=== PATIENT | female | born 1995 | race Two or more races ===

== ENCOUNTER 2022-12-16 20:00 | Inpatient (IN) | payer MEDICAID, OTHER ==
[~2022-12-16] VITALS: Ht 165.1 cm; Wt 137.0 kg
[2022-12-16 21:30] LABS: Basophils # (auto) 0 10 ^3/uL (0-0.2); Basophils % (auto) 0.5 % (0.0-2.0); Eosinophils # (auto) 0 10 ^3/uL (0-0.8); Eosinophils % (auto) 0.2 % (0.0-7.0); Hematocrit 34.5 % (36.0-46.0); Hemoglobin 11.4 g/dL (12.2-16.2); Lymphocytes # (auto) 1.8 10 ^3/uL (0.4-5.4); Lymphocytes % (auto) 19.8 % (10.0-50.0); Mean Corpuscular Hemoglobin 27.4 pg (28.0-32.0); Monocytes # (auto) 0.7 10 ^3/uL (0-1.3); Monocytes % (auto) 7.5 % (0.0-12.0); Neutrophils # (auto) 6.4 10 ^3/uL (1.6-8.6); Nucleated Red Blood Cells % 0.1 %; Red Blood Cells 4.16 10^6/uL (4.0-5.20); White Blood Cell 8.9 10^3/uL (4.4-10.8)
[2022-12-16 21:50] LABS: Blood Urea Nitrogen 13 mg/dL (7-18); Calcium 8.6 mg/dL (8.5-10.1); Chloride 109 mmol/L (98-107); Potassium 3.7 mmol/L (3.5-5.1); Sodium 138 mmol/L (136-145)
[2022-12-16 21:56] LABS: Alanine Aminotransferase 66 U/L (13-56); Albumin 3.5 g/dL (3.4-5.0); Alkaline Phosphatase 173 U/L (45-117); Anion Gap 4 (5-15); Aspartate Aminotransferase 73 U/L (15-37); BUN/Creatinine Ratio 18.6 (10.0-20.0); Bilirubin, Total 0.7 mg/dL (0.2-1.0); Carbon Dioxide 25 mmol/L (21-32); GFR African American 128 mL/min; GFR Non-African American 106 mL/min; Glucose 104 mg/dL (74-106); Total Protein 7.8 g/dL (6.4-8.2)
[2022-12-16 22:33] LABS: Lipase > 30000 U/L (73-393)
[2022-12-16 22:48] LABS: Urine Bacteria NONE SEEN /hpf (None Seen); Urine Blood 2+ /uL (Negative); Urine Mucus FEW (None Seen); Urine Specific Gravity 1.025 (1.001-1.035); Urine WBC 8 /hpf (0 - 5)
[2022-12-16] MEDS ORDERED: ONDANSETRON ODT 4 MG TAB PO ONE (23:15)
[2022-12-16] MEDS ORDERED: HYDROmorphone HCL 2 MG/ML VL/or syr IM ONE (23:15)
[2022-12-16] MEDS ORDERED: SODIUM CHLORIDE 0.9% 1,000 ML IV ONE (23:15)
[2022-12-17] VITALS (7 sets, daily range): BP systolic 108–126; BP diastolic 54–72
[2022-12-17] MEDS ORDERED: ACETAMINOPHEN 325 MG TAB PO PRN (00:30)
[2022-12-17] MEDS ORDERED: DOCUSATE SOD 100 MG CAP PO PRN (00:30)
[2022-12-17] MEDS ORDERED: HYDROcodone-ACET 5/325MG TAB PO PRN (00:30)
[2022-12-17] MEDS ORDERED: ONDANSETRON HCL 4 MG/2 ML VIAL IV PRN (00:30)
[2022-12-17] MEDS: MORPHINE SULFATE INJ 2 MG/ml SYRG IV PRN ×2 (01:31→12:33)
[2022-12-17] MEDS ORDERED: IBUPROFEN 600 MG TAB PO PRN (02:30)
[2022-12-17] MEDS ORDERED: NITROGLYCERIN 0.4 MG SL TAB SL PRN (02:30)
[2022-12-17] MEDS ORDERED: MORPHINE SULFATE INJ 2 MG/ml SYRG IV PRN (02:30)
[2022-12-17] MEDS: D5W/SOD CHLO 0.9% 1,000 ML IV SCH ×2 (03:53→18:45)
[2022-12-17 07:32] LABS: Basophils # (auto) 0 10 ^3/uL (0-0.2); Eosinophils # (auto) 0 10 ^3/uL (0-0.8); Lymphocytes # (auto) 1.8 10 ^3/uL (0.4-5.4); Monocytes # (auto) 0.5 10 ^3/uL (0-1.3); Neutrophils % (auto) 63.6 % (37.0-80.0); Nucleated Red Blood Cells % 0.2 %; White Blood Cell 6.5 10^3/uL (4.4-10.8)
[2022-12-17 07:35] LABS: Basophils % (auto) 0.3 % (0.0-2.0); Eosinophils % (auto) 0.3 % (0.0-7.0); Hematocrit 33.5 % (36.0-46.0); Hemoglobin 10.8 g/dL (12.2-16.2); Mean Corpuscular Hemoglobin 26.8 pg (28.0-32.0); Mean Corpuscular Hgb Conc. 32.1 g/dL (32.0-36.0); Mean Corpuscular Volume 83.4 fL (80.0-100.0); Monocytes % (auto) 7.8 % (0.0-12.0); Neutrophils # (auto) 4.1 10 ^3/uL (1.6-8.6); Red Blood Cells 4.02 10^6/uL (4.0-5.20); Red Cell Distribution Width 16.6 % (11.8-14.3)
[2022-12-17 07:54] LABS: Albumin 3.3 g/dL (3.4-5.0); Calcium 8.2 mg/dL (8.5-10.1); Potassium 3.5 mmol/L (3.5-5.1)
[2022-12-17 07:59] LABS: BUN/Creatinine Ratio 22.9 (10.0-20.0); Bilirubin, Total 0.6 mg/dL (0.2-1.0); Total Protein 7.2 g/dL (6.4-8.2)
[2022-12-17] MEDS: FAMOTIDINE (10MG/ML) 2ML VL IV SCH ×2 (11:32→21:36)
[2022-12-18] MEDS: D5W/SOD CHLO 0.9% 1,000 ML IV SCH ×2 (03:10→16:30)
[2022-12-18 05:00] VITALS: BP 104/49
[2022-12-18 07:13] LABS: Basophils # (auto) 0 10 ^3/uL (0-0.2); Basophils % (auto) 0.6 % (0.0-2.0); Eosinophils # (auto) 0.2 10 ^3/uL (0-0.8); Hemoglobin 10.3 g/dL (12.2-16.2); Lymphocytes # (auto) 2.3 10 ^3/uL (0.4-5.4); Lymphocytes % (auto) 35.9 % (10.0-50.0); Mean Corpuscular Hemoglobin 27.3 pg (28.0-32.0); Mean Corpuscular Hgb Conc. 33.1 g/dL (32.0-36.0); Mean Corpuscular Volume 82.5 fL (80.0-100.0); Monocytes # (auto) 0.7 10 ^3/uL (0-1.3); Monocytes % (auto) 11.7 % (0.0-12.0); Neutrophils # (auto) 3.1 10 ^3/uL (1.6-8.6); Neutrophils % (auto) 48.8 % (37.0-80.0); Nucleated Red Blood Cells % 0.1 %; Red Blood Cells 3.76 10^6/uL (4.0-5.20); Red Cell Distribution Width 16.3 % (11.8-14.3); White Blood Cell 6.4 10^3/uL (4.4-10.8)
[2022-12-18 07:34] LABS: Bilirubin, Total 0.7 mg/dL (0.2-1.0); Calcium 8.1 mg/dL (8.5-10.1); Total Protein 6.6 g/dL (6.4-8.2)
[2022-12-18 09:12] VITALS: BP 110/45
[2022-12-18] MEDS: FAMOTIDINE (10MG/ML) 2ML VL IV SCH ×2 (09:20→21:05)
[2022-12-18] MEDS ORDERED: POTASSIUM CHLORIDE 60 MEQ, LIDOCAINE 1% (LOCAL ANESTH.) 6 ML in SODIUM CHL 0.9% 500 ML IV ONE (10:15)
[2022-12-18 13:00] VITALS: BP 108/49
[2022-12-18 16:51] VITALS: BP 111/60
[2022-12-18 22:00] VITALS: BP 108/44
[2022-12-19 05:00] VITALS: BP 126/68
[2022-12-19 05:47] LABS: Basophils # (auto) 0 10 ^3/uL (0-0.2); Basophils % (auto) 0.5 % (0.0-2.0); Eosinophils # (auto) 0.2 10 ^3/uL (0-0.8); Eosinophils % (auto) 4.1 % (0.0-7.0); Hematocrit 30.1 % (36.0-46.0); Hemoglobin 10.1 g/dL (12.2-16.2); Lymphocytes # (auto) 2.3 10 ^3/uL (0.4-5.4); Lymphocytes % (auto) 42.2 % (10.0-50.0); Mean Corpuscular Hemoglobin 27.5 pg (28.0-32.0); Mean Corpuscular Hgb Conc. 33.7 g/dL (32.0-36.0); Mean Corpuscular Volume 81.6 fL (80.0-100.0); Monocytes # (auto) 0.6 10 ^3/uL (0-1.3); Monocytes % (auto) 10.7 % (0.0-12.0); Neutrophils # (auto) 2.3 10 ^3/uL (1.6-8.6); Neutrophils % (auto) 42.5 % (37.0-80.0); Red Blood Cells 3.69 10^6/uL (4.0-5.20); Red Cell Distribution Width 16.1 % (11.8-14.3); White Blood Cell 5.4 10^3/uL (4.4-10.8)
[2022-12-19] MEDS: D5W/SOD CHLO 0.9% 1,000 ML IV SCH (06:17)
[2022-12-19 06:22] LABS: Calcium 7.9 mg/dL (8.5-10.1); Potassium 3.5 mmol/L (3.5-5.1)
[2022-12-19 06:25] LABS: BUN/Creatinine Ratio 15.2 (10.0-20.0)
[2022-12-19 09:00] VITALS: BP 133/76
[2022-12-19] MEDS: FAMOTIDINE (10MG/ML) 2ML VL IV SCH (09:20)
[2022-12-19] MEDS ORDERED: PANT40T PO (11:00)
[2022-12-19 12:00] VITALS: BP 124/66
[2022-12-19 14:09] VITALS: BP 133/76
[2022-12-20 12:38] LABS: Hepatitis C Antibody Negative (Negative)
== END 2022-12-19 15:00 | disposition home or self-care (01) | DRG 282 ==
LOC: ER 20:09 → OVERFLOW 12-17 02:22 → WEST WING 12-17 04:12
PROVIDERS: ADMIT Nurse Practitioner Family; ATTEND Internal Medicine
DX: K85.90 Acute pancreatitis without necrosis or infection, unspecified (principal); N17.0 Acute kidney failure with tubular necrosis; Z68.43 Body mass index [BMI] 50.0-59.9, adult; E66.01 Morbid (severe) obesity due to excess calories; E87.6 Hypokalemia; E86.0 Dehydration; D64.9 Anemia, unspecified
CPT/HCPCS: 36415; 71045; 74176; 80048; 80053; 80061; 81001; 83690; 83735; 83880; 84484; 85025; 86803; 87340; 96361; 96374; 96375; G0378; J2001; J2405; J3490; J7042

== ENCOUNTER 2023-02-23 21:27 | Inpatient (IN) | payer MEDICAID ==
[~2023-02-23] VITALS: Ht 165.1 cm; Wt 139.5 kg
[~2023-02-23 21:27] MED LIST: PANT40T PO
[2023-02-23 22:22] LABS: Eosinophils # (auto) 0 10 ^3/uL (0-0.8); Eosinophils % (auto) 0.3 % (0.0-7.0); Lymphocytes # (auto) 1.9 10 ^3/uL (0.4-5.4); Lymphocytes % (auto) 19.9 % (10.0-50.0); Monocytes # (auto) 0.9 10 ^3/uL (0-1.3); Neutrophils # (auto) 6.8 10 ^3/uL (1.6-8.6); White Blood Cell 9.7 10^3/uL (4.4-10.8)
[2023-02-23 22:24] LABS: Basophils # (auto) 0.1 10 ^3/uL (0-0.2); Basophils % (auto) 0.5 % (0.0-2.0); Hematocrit 34.5 % (36.0-46.0); Mean Corpuscular Hgb Conc. 31.9 g/dL (32.0-36.0); Mean Corpuscular Volume 81.4 fL (80.0-100.0); Monocytes % (auto) 9.3 % (0.0-12.0); Red Blood Cells 4.24 10^6/uL (4.0-5.20); Red Cell Distribution Width 16.8 % (11.8-14.3)
[2023-02-23 22:25] LABS: Urine Bacteria NONE SEEN /hpf (None Seen); Urine Blood Negative /uL (Negative); Urine Clarity Clear (Clear); Urine Color Yellow (Yellow); Urine Mucus FEW (None Seen); Urine Protein, UAD 1+ (Negative); Urine Specific Gravity 1.037 (1.001-1.035); Urine WBC 2 /hpf (0 - 5); Urine pH 7.5 (5.0-8.0)
[2023-02-23 22:45] LABS: Albumin 3.4 g/dL (3.4-5.0); Calcium 8.3 mg/dL (8.5-10.1); Potassium 3.9 mmol/L (3.5-5.1)
[2023-02-23 22:54] LABS: BUN/Creatinine Ratio 31.4 (10.0-20.0); Bilirubin, Total 0.7 mg/dL (0.2-1.0); Total Protein 7.6 g/dL (6.4-8.2)
[2023-02-23] MEDS ORDERED: metroNIDAZOLE 500MG/100ML 100 ML IV ONE (23:15)
[2023-02-23] MEDS ORDERED: CIPROFLOXACIN 400MG/200ML 200 ML IV ONE (23:15)
[2023-02-23] MEDS ORDERED: ONDANSETRON HCL 4 MG/2 ML VIAL IV ONE (23:15)
[2023-02-23] MEDS ORDERED: MORPHINE SULFATE 4 MG/ML SYR/VIAL IV ONE (23:15)
[2023-02-23] MEDS ORDERED: SODIUM CHLORIDE 0.9% 1,000 ML IV ONE (23:15)
[2023-02-23 23:30] VITALS: PULSE 62; RESP 14; O2SAT 96
[2023-02-24] VITALS (8 sets, daily range): BP systolic 99–106; BP diastolic 44–56; PULSE 48–71; RESP 16–71; TEMP 98.2–98.7; O2SAT 97–100
[2023-02-24] MEDS ORDERED: ONDANSETRON HCL 4 MG/2 ML VIAL IV PRN (00:30)
[2023-02-24] MEDS: SODIUM CHLORIDE 0.9% 1,000 ML IV SCH ×2 (01:24→14:37)
[2023-02-24] MEDS: MORPHINE SULFATE INJ 2 MG/ml SYRG IV PRN ×2 (05:23→14:42)
[2023-02-24] MEDS ORDERED: KETOROLAC TROMETH 30 MG/ML 1ML VIAL IV ONE (06:30)
[2023-02-24] MEDS: cefTRIAXone 1GM/50ML D5W 50 ML IV SCH (09:45)
[2023-02-25] MEDS: SODIUM CHLORIDE 0.9% 1,000 ML IV SCH ×4 (01:30→22:10)
[2023-02-25 04:44] VITALS: BP 100/49; PULSE 56; RESP 18; TEMP 98.6; O2SAT 96
[2023-02-25 06:04] LABS: Basophils # (auto) 0 10 ^3/uL (0-0.2); Basophils % (auto) 0.4 % (0.0-2.0); Eosinophils # (auto) 0 10 ^3/uL (0-0.8); Eosinophils % (auto) 0.5 % (0.0-7.0); Hematocrit 29.7 % (36.0-46.0); Hemoglobin 9.8 g/dL (12.2-16.2); Lymphocytes # (auto) 3.4 10 ^3/uL (0.4-5.4); Lymphocytes % (auto) 52.7 % (10.0-50.0); Mean Corpuscular Hemoglobin 27.1 pg (28.0-32.0); Mean Corpuscular Volume 82.1 fL (80.0-100.0); Monocytes # (auto) 0.6 10 ^3/uL (0-1.3); Monocytes % (auto) 8.7 % (0.0-12.0); Neutrophils # (auto) 2.5 10 ^3/uL (1.6-8.6); Neutrophils % (auto) 37.7 % (37.0-80.0); Nucleated Red Blood Cells % 0.2 %; Red Blood Cells 3.62 10^6/uL (4.0-5.20); Red Cell Distribution Width 16.3 % (11.8-14.3); White Blood Cell 6.5 10^3/uL (4.4-10.8)
[2023-02-25 06:35] LABS: Albumin 2.8 g/dL (3.4-5.0); Calcium 8.2 mg/dL (8.5-10.1); Potassium 3.9 mmol/L (3.5-5.1)
[2023-02-25 06:37] LABS: BUN/Creatinine Ratio 27.5 (10.0-20.0)
[2023-02-25 06:39] LABS: Bilirubin, Total 0.7 mg/dL (0.2-1.0); Total Protein 6.2 g/dL (6.4-8.2)
[2023-02-25 08:00] VITALS: TEMP 37
[2023-02-25 09:36] VITALS: BP 106/50; PULSE 83; RESP 20; TEMP 98.6; O2SAT 95
[2023-02-25] MEDS: cefTRIAXone 1GM/50ML D5W 50 ML IV SCH (09:57)
[2023-02-25 14:31] VITALS: TEMP 37
[2023-02-25 17:00] VITALS: BP 116/55; PULSE 60; RESP 20; TEMP 98.6; O2SAT 97
[2023-02-25 22:00] VITALS: BP 133/67; PULSE 62; RESP 18; TEMP 98.4; O2SAT 98
[2023-02-26] MEDS: SODIUM CHLORIDE 0.9% 1,000 ML IV SCH ×2 (02:30→09:43)
[2023-02-26 05:00] VITALS: BP 133/69; PULSE 68; RESP 18; TEMP 98; O2SAT 96
[2023-02-26 07:30] VITALS: TEMP 36.9
[2023-02-26 07:32] LABS: Albumin 2.6 g/dL (3.4-5.0); Calcium 7.7 mg/dL (8.5-10.1); Potassium 3.3 mmol/L (3.5-5.1)
[2023-02-26 07:35] LABS: BUN/Creatinine Ratio 23.1 (10.0-20.0); Bilirubin, Total 0.6 mg/dL (0.2-1.0); Total Protein 5.9 g/dL (6.4-8.2)
[2023-02-26 08:00] VITALS: BP 111/61; PULSE 77; RESP 20; TEMP 98.5; O2SAT 98
[2023-02-26] MEDS: cefTRIAXone 1GM/50ML D5W 50 ML IV SCH (09:41)
[2023-02-26] MEDS ORDERED: PANTOPRAZOLE 40 MG TAB PO SCH (10:00)
[2023-02-26] MEDS ORDERED: PANT40TA2 PO (11:08)
[2023-02-26 11:57] VITALS: TEMP 36.9
[2023-02-26 13:06] VITALS: TEMP 36.9
== END 2023-02-26 13:30 | disposition home or self-care (01) | DRG 282 ==
LOC: ER 21:27 → OVERFLOW 02-24 00:32 → WEST WING 02-24 11:11
PROVIDERS: ADMIT Nurse Practitioner; ATTEND Internal Medicine
DX: K85.90 Acute pancreatitis without necrosis or infection, unspecified (principal); E66.01 Morbid (severe) obesity due to excess calories; N39.0 Urinary tract infection, site not specified; Z98.84 Bariatric surgery status; R74.01 Elevation of levels of liver transaminase levels; Z87.19 Personal history of other diseases of the digestive system; K80.20 Calculus of gallbladder without cholecystitis without obstruction; Z68.42 Body mass index [BMI] 45.0-49.9, adult
CPT/HCPCS: 36415; 74176; 76705; 80053; 81001; 83690; 85025; 96365; 96375; G0378; J0696; J1885; J2405; J3490